=== PATIENT | female | born 1950 | race Caucasian/White ===

== ENCOUNTER 2017-04-26 11:36 | Emergency (ER) | payer MEDICARE ==
[2017-04-26 13:14] LABS: Hematocrit 36 % (35-47); Hemoglobin 11.6 g/dl (12.0-16.0); Mean Corpuscular HGB Conc 33 g/dl (31-36); Mean Corpuscular Hemoglobin 30 pg (27-31); Mean Corpuscular Volume 92 fL (80-97); Mean Platelet Volume 7 um3 (7.4-10.4); Red Cell Distribution Width 15 % (10.5-15); White Blood Count 7.7 10^3/ul (3.5-10.8)
[2017-04-26 13:17] LABS: Albumin 3.5 g/dL (3.2-5.2); BUN/Creatinine Ratio 7.4 (8-20); C Reactive Protein 6.52 mg/L (< 5.00); Calcium 9.1 mg/dL (8.6-10.3); EGFR African American 45.2 (>60); EGFR Non-African American 35.1 (>60); Potassium 4.6 mmol/L (3.5-5.0); Total Bilirubin 0.4 mg/dL (0.2-1.0); Total Protein 6.5 g/dL (6.4-8.9)
[2017-04-26 13:19] LABS: Troponin I 0.01 ng/mL (<0.04)
[2017-04-26 13:58] VITALS: BP 113/52
--- NOTE | 2017-04-26 16:48 | ED ---
Samuya Maher Emily, scribed for Shaq Campos MD on 04/26/17 at 1224 . Complex/Multi-Sys Presentation - HPI Summary HPI Summary: This patient is a 66 year old F BIBA to [facility] with a chief complaint of intermittent throat pain since 3 days ago. The pain radiates to her back (worse this morning) and shoulder (since yesterday). The CC is described as spasms, sore, and burning. The patient rates the pain 6/10 in severity. Symptoms aggravated by nothing. Symptoms alleviated by nothing. Patient reports discolored right foot, burning sore sensation in right foot, dizziness, diarrhea , irregular palpitations, and slow heart rate. She reports a feral cat bite at her right foot 3 months ago for which she was started on abx. She also reports a recent C diff diagnosis for which she was started on another abx. PMHx incudes cardiac arrhythmia, liver failure (2011), and DM. - History Of Current Complaint Chief Complaint: EDChestPainROMI Time Seen by Provider: 04/26/17 11:59 Hx Obtained From: Patient Onset/Duration: Sudden Onset, Lasting Days, Still Present Timing: Intermittent, Lasting: - 3 days. Severity Currently: Moderate Severity Initially: Moderate Location: Radiates To: - Back (worse this morning) and shoulder (since yesterday ). Aggravating Factor(s): Nothing. Alleviating Factor(s): Nothing. Associated Signs And Symptoms: Positive: Other - Discolored right foot, burning sore sensation in right foot, dizziness, diarrhea, irregular palpitations, and slow heart rate. - Allergies/Home Medications Allergies/Adverse Reactions: Allergies Allergy/AdvReac Type Severity Reaction Status Date / Time Iodinated Diagnostic Agents Allergy TRIGEMINY Verified 02/25/17 13:52 PMH/Surg Hx/FS Hx/Imm Hx Endocrine/Hematology History: Reports: Hx Diabetes Denies: Hx Thyroid Disease Cardiovascular History: Reports: Hx Hypertension - ON MEDS Denies: Hx Pacemaker/ICD Respiratory History: Denies: Hx Asthma, Hx Chronic Obstructive Pulmonary Disease (COPD) GI History: Denies: Hx Ulcer History: Reports: Hx Renal Disease - PREVIOUS KIDNEY FAILURE BUT OK NOW Sensory History: Denies: Hx Hearing Aid Psychiatric History: Denies: Hx Panic Disorder - Cancer History Hx Chemotherapy: No Hx Radiation Therapy: No - Surgical History Surgery Procedure, Year, and Place: Liver surger r/t begnign tumors, [place] approx 1994; may have also had gallbladder removed at that time. LUMP IN CHEST REMOVED 2001 Infectious Disease History: No Infectious Disease History: Denies: Hx Hepatitis, Hx Human Immunodeficiency Virus (HIV), Hx Shingles, History Other Infectious Disease, Traveled Outside the [place] in Last 30 Days - Family History Known Family History: Positive: Other - NONCONTRIBUTORY - Social History Alcohol Use: None Substance Use Type: Reports: Prescribed Substance Use Comment - Amount & Last Used: methadone Smoking Status (MU): Never Smoked Tobacco Review of Systems Positive: Palpitations - Irregular., Other - Slow heart rate. Positive: Diarrhea Positive: Other - Throat pain which radiates to her back (worse this morning) and shoulder (since yesterday). Burning sore sensation in right foor. Positive: Other - Discolored right foot. Neurological: Other - Dizziness. All Other Systems Reviewed And Are Negative: Yes Physical Exam Triage Information Reviewed: Yes Vital Signs On Initial Exam: Initial Vitals Temp Pulse Resp BP Pulse Ox 98.4 F 62 16 122/54 98 04/26/17 11:43 04/26/17 11:43 04/26/17 11:43 04/26/17 11:43 04/26/17 11:43 Vital Signs Reviewed: Yes Appearance: Positive: Well-Appearing, No Pain Distress Skin: Positive: Warm, Skin Color Reflects Adequate Perfusion, Dry Head/Face: Positive: Normal Head/Face Inspection Eyes: Positive: Normal ENT: Positive: Normal ENT inspection Neck: Positive: Supple, Nontender Respiratory/Lung Sounds: Positive: Clear to Auscultation, Breath Sounds Present Cardiovascular: Positive: RRR Abdomen Description: Positive: Nontender, Soft Bowel Sounds: Positive: Present Musculoskeletal: Positive: Normal Neurological: Positive: Normal, Sensory/Motor Intact, Alert, Oriented to Person Place, Time, CN Intact II-III Psychiatric: Positive: Affect/Mood Appropriate - [place] Coma Scale Coma Scale Total: 15 Diagnostics - Vital Signs Vital Signs Temp Pulse Resp BP Pulse Ox 04/26/17 11:55 56 96 04/26/17 11:53 125/62 04/26/17 11:43 98.4 F 62 16 122/54 98 - Laboratory Lab Results: Lab Results 04/26/17 04/26/17 Range/Units 12:50 12:50 WBC 7.7 (3.5-10.8) 10^3/ul RBC 3.90 L (4.0-5.4) 10^6/ul Hgb 11.6 L (12.0-16.0) g/dl Hct 36 (35-47) % MCV 92 (80-97) fL MCH 30 (27-31) pg MCHC 33 (31-36) g/dl RDW 15 (10.5-15) % Plt Count 230 (150-450) 10^3/ul MPV 7 L (7.4-10.4) um3 Neut % (Auto) 76.7 (38-83) % Lymph % (Auto) 15.9 L (25-47) % [place] % (Auto) 6.2 (1-9) % Eos % (Auto) 0.8 (0-6) % Baso % (Auto) 0.4 (0-2) % Absolute Neuts (auto) 5.9 (1.5-7.7) 10^3/ul Absolute Lymphs (auto) 1.2 (1.0-4.8) 10^3/ul Absolute Monos (auto) 0.5 (0-0.8) 10^3/ul Absolute Eos (auto) 0.1 (0-0.6) 10^3/ul Absolute Basos (auto) 0 (0-0.2) 10^3/ul Absolute Nucleated RBC 0 10^3/ul Nucleated RBC % 0 Sodium 136 (133-145) mmol/L Potassium 4.6 (3.5-5.0) mmol/L Chloride 101 (101-111) mmol/L Carbon Dioxide 31 (22-32) mmol/L Anion Gap 4 (2-11) mmol/L BUN 11 (6-24) mg/dL Creatinine 1.49 H (0.51-0.95) mg/dL Est GFR ( Amer) 45.2 (>60) Est GFR (Non-Af Amer) 35.1 (>60) BUN/Creatinine Ratio 7.4 L (8-20) Glucose 147 H (70-100) mg/dL Calcium 9.1 (8.6-10.3) mg/dL Total Bilirubin 0.40 (0.2-1.0) mg/dL AST 21 (13-39) U/L ALT 14 (7-52) U/L Alkaline Phosphatase 61 (34-104) U/L Troponin I 0.01 (<0.04) ng/mL C-Reactive Protein 6.52 H (< 5.00) mg/L Total Protein 6.5 (6.4-8.9) g/dL Albumin 3.5 (3.2-5.2) g/dL Globulin 3.0 (2-4) g/dL Albumin/Globulin Ratio 1.2 (1-3) Result Diagrams: 04/26/17 12:50 04/26/17 12:50 Lab Statement: Any lab studies that have been ordered have been reviewed, and results considered in the medical decision making process. - EKG 1159 Cardiac Rate: Bradycardia - 58 BPM. EKG Rhythm: Sinus Bradycardia ST Segment: Non-Specific - Anterior leads. Complex Multi-Symp Course/Dx Course Of Treatment: Ms. Talavera presented with some vague complaints that have started in the last day and have been gradually worsening. Her W/U was unremarkable and my sense is that this is a flair up of her fibromyalgia. - Diagnoses Provider Diagnoses: Fibromyalgia Discharge - Discharge Plan Condition: Stable Disposition: HOME Patient Education Materials: Fibromyalgia (ED) Referrals: Anson Pack MD [Primary Care Provider] - 3 Days Gino Pizarro MD [Medical Doctor] - 3 Days The documentation as recorded by the Saumya beaver Emily accurately reflects the service I personally performed and the decisions made by me, Shaq Campos MD.
== END 2017-04-26 14:10 | disposition home or self-care (01) ==
LOC: ED 11:36
DX: M79.7 Fibromyalgia (principal); R19.7 Diarrhea, unspecified; R00.2 Palpitations; J02.9 Acute pharyngitis, unspecified
CPT/HCPCS: 36415; 80053; 84484; 85025; 86140; 93005; 99282

== ENCOUNTER → 2017-04-30 13:10 | Emergency (ER) | payer MEDICARE ==
[~2017-04-30 13:10] MED LIST: Methadone TAB* 10 MG PO ONE; NS 0.9% 1000 ML* 1,000 ML IV ONE
[2017-04-30 15:46] LABS: Hematocrit 38 % (35-47); Hemoglobin 12.7 g/dl (12.0-16.0); Mean Corpuscular HGB Conc 34 g/dl (31-36); Mean Corpuscular Hemoglobin 31 pg (27-31); Mean Corpuscular Volume 91 fL (80-97); Mean Platelet Volume 7 um3 (7.4-10.4); Red Blood Count 4.14 10^6/ul (4.0-5.4); Red Cell Distribution Width 15 % (10.5-15); White Blood Count 8.7 10^3/ul (3.5-10.8)
[2017-04-30 15:59] LABS: Albumin 3.9 g/dL (3.2-5.2); BUN/Creatinine Ratio 7.6 (8-20); C Reactive Protein 1.75 mg/L (< 5.00); Calcium 9.7 mg/dL (8.6-10.3); EGFR African American 46.6 (>60); EGFR Non-African American 36.2 (>60); Globulin 3.2 g/dL (2-4); Magnesium 1.9 mg/dL (1.9-2.7); Total Bilirubin 0.5 mg/dL (0.2-1.0); Total Protein 7.1 g/dL (6.4-8.9)
[2017-04-30 16:20] LABS: TSH (Thyroid Stimulating Horm) 0.89 mcIU/mL (0.34-5.60)
--- NOTE | 2017-04-30 16:39 | RAD ---
INDICATION: Left upper extremity pain and erythema. COMPARISON: There are no prior studies available for comparison. TECHNIQUE: Multiple real-time, color flow and Doppler tracings of the left upper extremity were obtained. FINDINGS: The axillary, brachial, and basilic veins all demonstrate normal compressibility, augmentation with compression and phasic response with respiration. The radial and ulnar veins demonstrate normal compressibility. The cephalic vein is occluded at the level of the anterior cubital fossa extending to the level of the midhumerus. The subclavian and internal jugular veins also demonstrate normal color flow imaging and phasic response with respiration. IMPRESSION: SUPERFICIAL VENOUS THROMBOSIS WITHIN THE CEPHALIC VEIN.
[2017-04-30 16:41] LABS: Urine Bacteria 1+ (Absent); Urine Bilirubin Negative (Negative); Urine Glucose Negative (Negative); Urine Nitrite Negative (Negative)
--- NOTE | 2017-04-30 16:48 | RAD ---
INDICATION: Midsternal chest pain radiating to the back COMPARISON: Similar chest x-ray June 25, 2015 TECHNIQUE: Single AP portable view of the chest was obtained. FINDINGS: Image quality is compromised due to the relative inferiority of a portable chest x-ray. The heart and mediastinum exhibit normal size and contour. The lungs are grossly clear. There is no evidence of a large pleural effusion. Visualized bones are normal for the patient's age. IMPRESSION: No radiographic evidence for acute cardiopulmonary abnormality on this portable chest x-ray.
[2017-04-30 21:58] VITALS: BP 113/52
--- NOTE | 2017-04-30 23:15 | ED ---
Paty Maher Thomas, scribed for Kat Roblero MD on 04/30/17 at 1531 . Complex/Multi-Sys Presentation - HPI Summary HPI Summary: The pt is a 66 y/o F with a Hx of Fibromyalgia presenting to the ED c/o pain over her entire body. She notes a burning sensation on her right foot, across her lower back, and in her neck. She also describes a pressure sensation in her head and my ears keep popping. She also reports epigastric abd pain. The pt rates the pain 10/10. The pain is aggravated and alleviated by nothing. The patient has treated the pain with nothing [employer]. However, she did take methadone 50mg PO this morning. Pt additionally c/o pain in her left bicep on the area of the IV insertion left week. Pt denies diarrhea, redness, and swelling in the ED. Per EMR, her complaints on her visit on 04/26/17 were intermittent throat pain (that radiated to her back and shoulder and was described as spasms, soreness, and burning), discolored right foot, a burning sensation on her right foot, dizziness, diarrhea, irregular palpitations, and bradycardia. She reports a bite by a feral cat three months ago, after which she was prescribed Levaquin and Flagyl. She developed C. diff after these antibiotics and for this she was prescribed Vancomycin. Her PCP is Dr. Pack, who she saw this complaint after her ED visit on 04/26/17. He diagnosed her with gastritis and prescribed her Sucralfate, which she started two days ago. She was started on Methadone by Dr. Pack about ten years ago. She takes Atenolol, Soma, Nexium, Lisinopril, Crestor, Verapamil, and Jenuvia. PMHx: cardiac arrhythmia, liver failure, DM, HTN. PSHx: liver surgery, cholecystectomy. SHx: no smoking, no alcohol use, prescribed methadone. FHx: [place], CVA, DM. Patients medications reviewed this visit. I also reviewed I-STOP and her last prescription for methadone was . - History Of Current Complaint Chief Complaint: EDGeneral Time Seen by Provider: 04/30/17 14:31 Hx Obtained From: Patient Onset/Duration: Lasting Weeks - per EMR, complaint began 04/23/17, Still Present Timing: Constant Severity Currently: Severe Severity Initially: Severe Location: Pain At: - "entire body" Character: Pressure - in head Aggravating Factor(s): None Alleviating Factor(s): None Associated Signs And Symptoms: Positive: Back Pain - pain radiates to her back, Other - POS: burning sensation over "entire body", pressure sensation in head, pain in left bicep on area of IV insertionNEG: redness, swelling. Negative: Fever - Allergies/Home Medications Allergies/Adverse Reactions: Allergies Allergy/AdvReac Type Severity Reaction Status Date / Time Iodinated Diagnostic Agents Allergy TRIGEMINY Verified 02/25/17 13:52 PMH/Surg Hx/FS Hx/Imm Hx Previously Healthy: No Endocrine/Hematology History: Reports: Hx Diabetes Denies: Hx Thyroid Disease Cardiovascular History: Reports: Hx Hypertension - ON MEDS Denies: Hx Pacemaker/ICD Respiratory History: Denies: Hx Asthma, Hx Chronic Obstructive Pulmonary Disease (COPD) GI History: Denies: Hx Ulcer History: Reports: Hx Renal Disease - PREVIOUS KIDNEY FAILURE BUT OK NOW Sensory History: Denies: Hx Hearing Aid Psychiatric History: Denies: Hx Panic Disorder - Cancer History Hx Chemotherapy: No Hx Radiation Therapy: No - Surgical History Surgery Procedure, Year, and Place: Liver surger r/t [facility] tumors, [place] approx 1994; may have also had gallbladder removed at that time. LUMP IN CHEST REMOVED 2001 Infectious Disease History: No Infectious Disease History: Denies: Hx Hepatitis, Hx Human Immunodeficiency Virus (HIV), Hx Shingles, History Other Infectious Disease, Traveled Outside the [place] in Last 30 Days - Family History Known Family History: Positive: Diabetes, Other - POS: [place], CVA - Social History Alcohol Use: None Substance Use Type: Reports: None Substance Use Comment - Amount & Last Used: methadone Smoking Status (MU): Never Smoked Tobacco Review of Systems Positive: Other - POS: pain over "entire body" (described as burning). Negative : Fever Positive: Chest Pain Positive: Abdominal Pain - epigastric. Negative: Diarrhea Positive: Other - POS: pain in left bicep at area of incision site; NEG: swelling Negative: Other - NEG: redness Neurological: Other - POS: pressure sensation in head All Other Systems Reviewed And Are Negative: Yes Physical Exam Triage Information Reviewed: Yes Vital Signs On Initial Exam: Initial Vitals Temp Pulse Resp BP Pulse Ox 98.3 F 59 18 131/81 99 04/30/17 13:12 04/30/17 13:12 04/30/17 13:12 04/30/17 13:12 04/30/17 13:12 Vital Signs Reviewed: Yes Appearance: Positive: Well-Appearing, Well-Nourished, Pain Distress Skin: Positive: Warm, Skin Color Reflects Adequate Perfusion Head/Face: Positive: Normal Head/Face Inspection Eyes: Positive: Conjunctiva Clear ENT: Positive: Normal ENT inspection Neck: Positive: Supple Respiratory/Lung Sounds: Positive: Clear to Auscultation, Breath Sounds Present , Other - No respiratory distress Cardiovascular: Positive: RRR, Pulses are Symmetrical in both Upper and Lower Extremities, Other - Brisk cap refill. Negative: Murmur Abdomen Description: Positive: Nontender, Soft Bowel Sounds: Positive: Present Musculoskeletal: Positive: Strength/ROM Intact Neurological: Positive: Sensory/Motor Intact, Alert, Oriented to Person Place, Time, Facial Symmetry, Speech Normal Psychiatric: Positive: Normal - [place] Coma Scale Coma Scale Total: 15 Diagnostics - Vital Signs Vital Signs Temp Pulse Resp BP Pulse Ox 04/30/17 14:41 97.4 F 57 18 129/64 100 04/30/17 13:12 98.3 F 59 18 131/81 99 - Laboratory Lab Results: Lab Results 04/30/17 04/30/17 04/30/17 Range/Units 15:36 15:36 15:36 WBC 8.7 (3.5-10.8) 10^3/ul RBC 4.14 (4.0-5.4) 10^6/ul Hgb 12.7 (12.0-16.0) g/dl Hct 38 (35-47) % MCV 91 (80-97) fL MCH 31 (27-31) pg MCHC 34 (31-36) g/dl RDW 15 (10.5-15) % Plt Count 208 (150-450) 10^3/ul MPV 7 L (7.4-10.4) um3 Neut % (Auto) 78.1 (38-83) % Lymph % (Auto) 17.3 L (25-47) % [place] % (Auto) 3.5 (1-9) % Eos % (Auto) 0.3 (0-6) % Baso % (Auto) 0.8 (0-2) % Absolute Neuts (auto) 6.8 (1.5-7.7) 10^3/ul Absolute Lymphs (auto) 1.5 (1.0-4.8) 10^3/ul Absolute Monos (auto) 0.3 (0-0.8) 10^3/ul Absolute Eos (auto) 0 (0-0.6) 10^3/ul Absolute Basos (auto) 0.1 (0-0.2) 10^3/ul Absolute Nucleated RBC 0 10^3/ul Nucleated RBC % 0 INR (Anticoag Therapy) 0.97 (0.89-1.11) Sodium 136 (133-145) mmol/L Potassium 4.0 (3.5-5.0) mmol/L Chloride 98 L (101-111) mmol/L Carbon Dioxide 32 (22-32) mmol/L Anion Gap 6 (2-11) mmol/L BUN 11 (6-24) mg/dL Creatinine 1.45 H (0.51-0.95) mg/dL Est GFR ( Amer) 46.6 (>60) Est GFR (Non-Af Amer) 36.2 (>60) BUN/Creatinine Ratio 7.6 L (8-20) Glucose 120 H (70-100) mg/dL Lactic Acid (0.5-2.0) mmol/L Calcium 9.7 (8.6-10.3) mg/dL Magnesium 1.9 (1.9-2.7) mg/dL Total Bilirubin 0.50 (0.2-1.0) mg/dL AST 26 (13-39) U/L ALT 18 (7-52) U/L Alkaline Phosphatase 63 (34-104) U/L Total Creatine Kinase 46 (10-223) U/L Troponin I 0.00 (<0.04) ng/mL C-Reactive Protein 1.75 (< 5.00) mg/L Total Protein 7.1 (6.4-8.9) g/dL Albumin 3.9 (3.2-5.2) g/dL Globulin 3.2 (2-4) g/dL Albumin/Globulin Ratio 1.2 (1-3) TSH 0.89 (0.34-5.60) mcIU/mL Urine Color Urine Appearance Urine pH (5-9) Ur Specific [place] (1.010-1.030) Urine Protein (Negative) Urine Ketones (Negative) Urine Blood (Negative) Urine Nitrate (Negative) Urine Bilirubin (Negative) Urine Urobilinogen (Negative) Ur Leukocyte Esterase (Negative) Urine WBC (Auto) (Absent) Urine RBC (Auto) (Absent) Ur Squamous Epith Cells (Absent) Urine Bacteria (Absent) Hyaline Casts (Absent) Urine Glucose (Negative) 04/30/17 04/30/17 Range/Units 15:36 16:25 WBC (3.5-10.8) 10^3/ul RBC (4.0-5.4) 10^6/ul Hgb (12.0-16.0) g/dl Hct (35-47) % MCV (80-97) fL MCH (27-31) pg MCHC (31-36) g/dl RDW (10.5-15) % Plt Count (150-450) 10^3/ul MPV (7.4-10.4) um3 Neut % (Auto) (38-83) % Lymph % (Auto) (25-47) % [place] % (Auto) (1-9) % Eos % (Auto) (0-6) % Baso % (Auto) (0-2) % Absolute Neuts (auto) (1.5-7.7) 10^3/ul Absolute Lymphs (auto) (1.0-4.8) 10^3/ul Absolute Monos (auto) (0-0.8) 10^3/ul Absolute Eos (auto) (0-0.6) 10^3/ul Absolute Basos (auto) (0-0.2) 10^3/ul Absolute Nucleated RBC 10^3/ul Nucleated RBC % INR (Anticoag Therapy) (0.89-1.11) Sodium (133-145) mmol/L Potassium (3.5-5.0) mmol/L Chloride (101-111) mmol/L Carbon Dioxide (22-32) mmol/L Anion Gap (2-11) mmol/L BUN (6-24) mg/dL Creatinine (0.51-0.95) mg/dL Est GFR ( Amer) (>60) Est GFR (Non-Af Amer) (>60) BUN/Creatinine Ratio (8-20) Glucose (70-100) mg/dL Lactic Acid 1.0 (0.5-2.0) mmol/L Calcium (8.6-10.3) mg/dL Magnesium (1.9-2.7) mg/dL Total Bilirubin (0.2-1.0) mg/dL AST (13-39) U/L ALT (7-52) U/L Alkaline Phosphatase (34-104) U/L Total Creatine Kinase (10-223) U/L Troponin I (<0.04) ng/mL C-Reactive Protein (< 5.00) mg/L Total Protein (6.4-8.9) g/dL Albumin (3.2-5.2) g/dL Globulin (2-4) g/dL Albumin/Globulin Ratio (1-3) TSH (0.34-5.60) mcIU/mL Urine Color Yellow Urine Appearance Clear Urine pH 6.0 (5-9) Ur Specific [place] 1.008 L (1.010-1.030) Urine Protein Negative (Negative) Urine Ketones Negative (Negative) Urine Blood Negative (Negative) Urine Nitrate Negative (Negative) Urine Bilirubin Negative (Negative) Urine Urobilinogen Negative (Negative) Ur Leukocyte Esterase Trace H (Negative) Urine WBC (Auto) Trace(0-5/hpf) (Absent) Urine RBC (Auto) Absent (Absent) Ur Squamous Epith Cells Present H (Absent) Urine Bacteria 1+ H (Absent) Hyaline Casts Present H (Absent) Urine Glucose Negative (Negative) Result Diagrams: 04/30/17 15:36 04/30/17 15:36 Lab Statement: Any lab studies that have been ordered have been reviewed, and results considered in the medical decision making process. - Radiology CXR Xray Interpretation: No Acute Changes - CXR shows No radiographic evidence for acute cardiopulmonary abnormality on this portable chest x-ray. ED Physician has reviewed this report and agrees. Radiology Interpretation Completed By: Radiologist - EKG 17:01 Cardiac Rate: NL - SB at 54 BPM, Nml AV, Prolonged IV conduction time, Prolonged QTc (523), Nml [place]. Nonspecific. EKG Comparison: No Significant Change - comapred to 04/26/17, there is no significant change. - Additional Comments Diagnostic Additional Comments: Venous Doppler US of RUE. Interpreted by radiologist. Impression: SUPERFICIAL VENOUS THROMBOSIS WITHIN THE CEPHALIC VEIN. ED Physician has reviewed this report and agrees. Re-Evaluation - Re-Evaluation First Eval Re-Evaluation Time: 18:41 Change: Worse Comment: She is complaining of increasing pain. She still has epigastic pain. Second Eval Re-Evaluation Time: 20:44 Change: Unchanged Comment: I discussed with the patient warm compresses, adequate sleep, and pain management going forward with her primary care provider. Complex Multi-Symp Course/Dx Assessment/Plan: The patient presents with pain over her entire body described as burning that began 7 days ago. She has a Hx of Fibromyalgia and is on methadone. Pt complains of epigastric abd pain as well as pain in her left bicep on the area of the IV insertion left week. In the ED course the patient was given IV fluids and Methadone. Bloodwork shows Chloride 98, Creatine 1.45, Glucose 120. UA shows Ur specific gravity 1.008, trace leukocyte esterase, 1+ bacteria, and present hyaline casts. CXR shows No radiographic evidence for acute cardiopulmonary abnormality on this portable chest x-ray. Venous Doppler US of RUE shows SUPERFICIAL VENOUS THROMBOSIS WITHIN THE CEPHALIC VEIN. ED Physician has reviewed this report and agrees. EKG at 17:01 reveals SB at 54 BPM , Nml AV, Prolonged IV conduction time, Prolonged QTc (523), Nml [place]. Nonspecific. Compared to 04/26/17, there is no significant change. She is diagnosed with paresthesia, epigastric pain, fibromyalgia, and acute on chronic pain. She will follow up with neurology and her PCP. She is agreeable to this plan. - Diagnoses Provider Diagnoses: Paresthesia, Epigastric pain, Fibromyalgia, Acute on chronic pain Discharge - Discharge Plan Condition: Stable Disposition: HOME Patient Education Materials: Fibromyalgia (ED), Epigastric Pain (ED), Paresthesia (ED) Referrals: David Mcdonnell MD [Medical Doctor] - 3 Days Anson Pcak MD [Primary Care Provider] - Additional Instructions: You have a superficial thrombophlebitis in your left arm. You should treat this with warm compresses four times a day for 7 days. Continue your methadone as directed. Consult with Dr. Pack whether you can increase the dose that you take. Continue your other medications as directed. Return to the emergency room for any new or worsening symptoms. The documentation as recorded by the Paty beaver Thomas accurately reflects the service I personally performed and the decisions made by me, Kat Roblero MD.
== END | disposition home or self-care (01) ==
LOC: ED 13:10
DX: M79.7 Fibromyalgia (principal); R10.13 Epigastric pain; R20.9 Unspecified disturbances of skin sensation; G89.29 Other chronic pain; I82.612 Acute embolism and thrombosis of superficial veins of left upper extremity
CPT/HCPCS: 36415; 71010; 80053; 81003; 81015; 82550; 83605; 83735; 84443; 84484; 85025; 85610; 86140; 87086; 93005; 96360; 99282; A9270-GY

== ENCOUNTER 2017-08-04 08:10 | Day surgery (SDC) | payer MEDICARE ==
[~2017-08-04 08:10] MED LIST changes: +Acetaminophen TAB* 325 MG PO PRN; +Buffered Lidocaine 0.9% SYRIN* 5 ML/SYR SYRINGE INTRADERM ONE; -Methadone TAB* 10 MG PO ONE; +Midazolam* 1 MG/ML 2 ML VIAL (2 MG) ONE; -NS 0.9% 1000 ML* 1,000 ML IV ONE
[2017-08-04] MEDS ORDERED: Midazolam* 1 MG/ML 2 ML VIAL (2 MG) ONE ×2 (10:12→10:15)
--- NOTE | 2017-08-04 10:47 | OP ---
DATE OF OPERATION: 08/04/2017. DATE OF : 1950. SURGEON: Fercho Darden M.D. ANESTHESIA: Local MAC. PREOPERATIVE DIAGNOSIS: Cataract right eye. POSTOPERATIVE DIAGNOSIS: Cataract right eye. COMPLICATIONS: None. OPERATIVE PROCEDURE: Extracapsular cataract extraction with intraocular lens implant right eye. PROCEDURE: The patient was brought to the operating room after being given 1/2% Alcaine with epineph rine drops in the preoperative area. The eye was prepped and draped in the usual sterile fashion. S terile drape and eyelid speculum were placed. Again, topical 1/2% Alcaine with epinephrine was given . A paracentesis incision was made at the 9 o'clock position with the No.75 blade. Clear cornea inc ision 2.2 x 2.2-mm was created at the 12 o'clock position starting at the anterior limbus using the 2 .2-mm keratome. The anterior chamber was irrigated with 0.4 mL of 1% non-preservative intracameral l idocaine and filled with DisCoVisc. A capsulorrhexis was completed using the cystotome and the Utrat a forceps. Hydrodissection was performed with balanced salt solution. The lens nucleus was removed w ith the Phacoemulsification handpiece without incident. Cortex was removed with the irrigation-aspir ation handpiece. The capsular bag was re-inflated using DisCoVisc and an [id number] implant was inser erasmo with the shooter. The irrigation-aspiration handpiece was used to remove all residual DisCoVisc. The eye was refilled with balanced salt solution and the wound checked and found to be watertight. Topical Maxitrol drops were given. [id number]/[facility] #: [id number]
[2017-08-04 12:46] VITALS: BP 111/53
== END 2017-08-04 12:40 | disposition home or self-care (01) ==
LOC: OREAST 08:10
PROVIDERS: ATTEND Specialist
DX: H25.811 Combined forms of age-related cataract, right eye (principal); H40.023 Open angle with borderline findings, high risk, bilateral; I47.1 Supraventricular tachycardia; E11.22 Type 2 diabetes mellitus with diabetic chronic kidney disease; I12.9 Hypertensive chronic kidney disease with stage 1 through stage 4 chronic kidney disease, or unspecified chronic kidney disease; N18.3 Chronic kidney disease, stage 3 (moderate); M79.7 Fibromyalgia
CPT/HCPCS: J2250; V2632

== ENCOUNTER 2017-08-11 07:31 | Day surgery (SDC) | payer MEDICARE ==
[~2017-08-11 07:31] MED LIST changes: -Midazolam* 1 MG/ML 2 ML VIAL (2 MG) ONE
[2017-08-11] MEDS ORDERED: Midazolam* 1 MG/ML 2 ML VIAL (2 MG) ONE ×2 (09:39→10:06)
[2017-08-11 10:32] VITALS: BP 104/48
[2017-08-11] MEDS ORDERED: Lidocaine 2% EPI 1:200000 MPF* 20 ML VIAL ONE (11:02)
[2017-08-11] MEDS ORDERED: Povidone Iodine 5% OPTH* 30 ML BTL ONE (11:02)
[2017-08-11] MEDS ORDERED: Lidocaine 1% MPF* 2 ML VIAL ONE (11:02)
[2017-08-11] MEDS ORDERED: Proparacaine 0.5% OPHTH.SOL* 15 ML BTL ONE (11:02)
[2017-08-11] MEDS ORDERED: Cyclopentolate 1% OPTH.SOL* 2 ML BTL ONE (11:02)
[2017-08-11] MEDS ORDERED: Ketorolac 0.5% OPHTH (NF) 0.5 % 5 ML BTL ONE (11:02)
[2017-08-11] MEDS ORDERED: acetaZOLAMIDE TAB* 250 MG ONE (11:02)
[2017-08-11] MEDS ORDERED: Phenylephrine 2.5% OPTH.SOL* 2 ML BTL ONE (11:02)
[2017-08-11] MEDS ORDERED: Neomycin/Polymy/Dex OPTH.SUSP* MAXITROL 0.1% 5 ML ONE (11:02)
--- NOTE | 2017-08-12 04:11 | OP ---
DATE OF OPERATION: 08/11/17 [facility] DATE OF : 52 SURGEON: Fercho Darden M.D. PREOPERATIVE DIAGNOSIS: Cataract, left eye. POSTOPERATIVE DIAGNOSIS: Cataract, left eye. OPERATIVE PROCEDURE: Extracapsular cataract extraction with intraocular lens implant left eye. DESCRIPTION OF PROCEDURE: The patient was brought to the operating room after being given 1/2% Alcaine with epinephrine drops in the preoperative area. The eye was prepped and draped in the usual sterile fashion. Sterile drape and eyelid speculum were placed. Again, topical 1/2% Alcaine with epinephrine was given. A paracentesis incision was made at the 3 o'clock position with the No.75 blade. Clear cornea incision 2.2 x 2.2-mm was created at the 6 o'clock position starting at the anterior limbus using the 2.2-mm keratome. The anterior chamber was irrigated with 0.4 mL of 1% non-preservative intracameral lidocaine and filled with DisCoVisc. A capsulorrhexis was completed using the cystotome and the Utrata forceps. Hydrodissection was performed with balanced salt solution. The lens nucleus was removed with the Phacoemulsification handpiece without incident. Cortex was removed with the irrigation-aspiration handpiece. The capsular bag was re-inflated using DisCoVisc and an [id number] implant was inserted with the shooter. The irrigation-aspiration handpiece was used to remove all residual DisCoVisc. The eye was refilled with balanced salt solution and the wound checked and found to be watertight. Topical Maxitrol drops were given. [id number]/[facility] #: [id number] [facility]
== END 2017-08-11 10:42 | disposition home or self-care (01) ==
LOC: OREAST 07:31
PROVIDERS: ATTEND Specialist
DX: H25.812 Combined forms of age-related cataract, left eye (principal); H40.023 Open angle with borderline findings, high risk, bilateral; K21.9 Gastro-esophageal reflux disease without esophagitis; I10 Essential (primary) hypertension; E78.00 Pure hypercholesterolemia, unspecified; E11.22 Type 2 diabetes mellitus with diabetic chronic kidney disease; M79.7 Fibromyalgia; Z96.1 Presence of intraocular lens
CPT/HCPCS: A9270-GY; J2250; V2632

== ENCOUNTER 2018-11-14 11:46 | Emergency (ER) | payer MEDICARE ==
--- NOTE | 2018-11-14 12:10 | UC ---
Throat Pain/Nasal Jonathan HPI - HPI Summary HPI Summary: 68 yo female presents with right ear pain and bleeding s/p injury yesterday. She tells me that she was moving a lot of boxes and furniture to get ready for her grand-daughter's birthday democrat. At one point she ran into someone else carrying something and hit her right ear. Had immediate pain and decreased hearing. Later had some mild bloody drainage from the ear. She put a q-tip in her ear and noticed more blood. Overnight she put gauze in her ear and noticed it was bloody this morning - prompting her visit to . She was feeling well prior to this and denies cold symptoms, headache, dizziness, sinus symptoms. - History of Current Complaint Chief Complaint: UCEar Stated Complaint: EAR BLEEDING Time Seen by Provider: 11/14/18 12:10 Hx Obtained From: Patient Onset/Duration: Sudden Onset Severity: Mild Pain Intensity: 3 Pain Scale Used: 0-10 Numeric - Allergies/Home Medications Allergies/Adverse Reactions: Allergies Allergy/AdvReac Type Severity Reaction Status Date / Time Iodinated Contrast- Oral and Allergy See Comment Verified 11/14/18 12:05 IV Dye levofloxacin [From Levaquin] Allergy Muscle Ache Verified 11/14/18 12:05 metronidazole [From Flagyl] Allergy Muscle Ache Verified 11/14/18 12:05 NSAIDS (Non-Steroidal Allergy See Comment Verified 11/14/18 12:05 Anti-Inflamma vancomycin Allergy Muscle Ache Verified 11/14/18 12:05 PMH/Surg Hx/FS Hx/Imm Hx - Additional Past Medical History Additional PMH: Chronic pain Endocrine History: Dyslipidemia Cardiovascular History: Hypertension GI/ History: Gastroesophageal Reflux - Surgical History Surgical History: Yes Surgery Procedure, Year, and Place: Liver surger r/t begnign tumors, [place] approx 1994; may have also had gallbladder removed at that time. 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 WDWN. No pain distress. SKIN: No rashes, sores, lesions, or open wounds. HEENT: Head: AT/NC Eyes: EOM intact. Conjunctiva clear without inflammation or discharge. Ears: Hearing grossly normal. RIGHT TM with very small perforation at the 1 o'clock position. Ear canal with abrasion and scant bleeding. No discharge. Nose: Nasal mucosa pink and moist. NTTP maxillary and frontal sinus. Throat: Posterior oropharynx without exudates, erythema, or tonsillar enlargement. Uvula midline. NECK: Supple. Nontender. No lymphadenopathy. CHEST: CTAB. No r/r/w. No accessory muscle use. Breathing comfortably and in no distress. CV: RRR. Without m/r/g. Pulses intact. NEURO: Alert. PSYCH: Age appropriate behavior. Triage Information Reviewed: Yes Vital Signs: Initial Vital Signs Temp 98.6 F 11/14/18 11:54 Pulse 55 11/14/18 11:54 Resp 18 11/14/18 11:54 BP 115/65 11/14/18 11:54 Pulse Ox 99 11/14/18 11:54 Vital Signs Reviewed: Yes Throat Pain/Nasal Course/Dx - Course Course Of Treatment: Traumatic rupture of right TM. Will cover her with antibiotic ear drops and advise expectant management. - Differential Dx/Diagnosis Provider Diagnosis: Barotrauma, Perforated tympanic membrane Discharge - Sign-Out/Discharge Documenting (check all that apply): Patient Departure All imaging exams completed and their final reports reviewed: No Studies - Discharge Plan Condition: Stable Disposition: HOME Prescriptions: Ofloxacin 0.3% (Ear Drop)* [Floxin 0.3% OTIC.KACI (Ear Drop)] 5 drop RIGHT EAR BID #1 btl Patient Education Materials: Ruptured Eardrum (ED) Referrals: Anson Pack MD [Primary Care Provider] - Additional Instructions: If you develop a fever, shortness of breath, chest pain, new or worsening symptoms - please call your PCP or go to the ED. - Billing Disposition and Condition Condition: STABLE Disposition: Home
[2018-11-14 12:41] VITALS: BP 115/65
== END 2018-11-14 12:20 | disposition home or self-care (01) ==
LOC: UCEAST 11:46
DX: S09.21XA Traumatic rupture of right ear drum, initial encounter (principal); T70.0XXA Otitic barotrauma, initial encounter; I10 Essential (primary) hypertension; Z88.1 Allergy status to other antibiotic agents; Z88.8 Allergy status to other drugs, medicaments and biological substances; Z91.041 Radiographic dye allergy status; W22.8XXA Striking against or struck by other objects, initial encounter
CPT/HCPCS: 99212; G0463

== ENCOUNTER 2019-05-12 08:59 | Day surgery (SDC) | payer MEDICARE ==
[~2019-05-12 08:59] MED LIST changes: -Acetaminophen TAB* 325 MG PO PRN; -Buffered Lidocaine 0.9% SYRIN* 5 ML/SYR SYRINGE INTRADERM ONE; +Buffered Lidocaine 1% SYRIN* 1 ML/SYRINGE INTRADERM ONE; +Lactated Ringers 1000 ML Bag* 1,000 ML IV SCH
[2019-05-12] MEDS ORDERED: Midazolam* 1 MG/ML 5 ML VIAL (5 MG) ONE (11:29)
[2019-05-12] MEDS ORDERED: Ondansetron INJ* 2 MG/ML VIAL ONE (12:01)
[2019-05-12] MEDS ORDERED: Propofol* 10 MG/ML 20 ML BTL ONE (12:01)
[2019-05-12] MEDS ORDERED: Lidocaine 2% PF * 5 ML VIAL ONE (12:01)
[2019-05-12 14:06] VITALS: BP 139/66
--- NOTE | 2019-05-13 02:25 | PRO ---
CC: Anson Pack MD * COLONOSCOPY REPORT: DATE OF PROCEDURE: 05/12/19 - [facility] PRIMARY CARE PHYSICIAN: Anson Pack MD. INDICATION FOR PROCEDURE: Rectal bleeding, constipation. PROCEDURE PERFORMED: Complete colonoscopy to the cecum with biopsy polypectomy. MEDICATIONS GIVEN: Please see anesthesia record. DESCRIPTION OF PROCEDURE: After the colonoscopy procedure including the risks, benefits, and alternatives with the risks not limited to perforation, surgery, missed lesions, and/or were explained to the patient, written informed consent was obtained, IV medication was given, and a rectal exam was performed. The rectal exam revealed palpable internal hemorrhoids and some slight rectal prolapse. The adult Olympus gastroscope was then inserted into the patient's rectum and advanced very carefully through the entirety of the colon into the cecal base. Cecal base was carefully inspected and normal in appearance. The terminal ileal valve was identified and normal in appearance. A photograph was taken of the cecal cap. The preparation was good over the next 10 minutes. The scope was carefully withdrawn. In the sigmoid colon, a small polyp was removed with biopsy polypectomy in the entirety. On return to the rectum, direct views were normal. On retroflexion, grade 2 internal hemorrhoids were appreciated. The scope was then removed from the patient. She tolerated the procedure well. She returned to the recovery room in stable condition. IMPRESSION: 1. Complete colonoscopy to the cecum. 2. Good prep. 3. Biopsy polypectomy of sigmoid colon polyp. 4. Grade 2 internal hemorrhoids. 5. Slight rectal prolapse. RECOMMENDATIONS: Would continue to monitor CBC. The bleeding may be explained by the rectal prolapse and the internal hemorrhoids. If ongoing decrease, would consider upper endoscopy. Recommend different bowel regimen. I would likely try to get her approved for either Linzess or Amitiza for opiate-induced constipation. Would recommend a repeat colonoscopy in 5 years' time. [id number]/[facility] #: [id number] [facility]ITAL[facility]
== END 2019-05-12 14:40 | disposition home or self-care (01) ==
LOC: OR 08:59
PROVIDERS: ATTEND Internal Medicine Gastroenterology
DX: K62.5 Hemorrhage of anus and rectum (principal); K59.00 Constipation, unspecified; K63.5 Polyp of colon; K64.8 Other hemorrhoids; E11.9 Type 2 diabetes mellitus without complications; Z79.84 Long term (current) use of oral hypoglycemic drugs; I10 Essential (primary) hypertension; E78.00 Pure hypercholesterolemia, unspecified; R00.2 Palpitations
CPT/HCPCS: 88305; J2250; J2405; J2704

== ENCOUNTER 2019-10-29 12:55 | Emergency (ER) | payer MEDICARE ==
--- OUTSIDE RECORDS SUMMARY | 2019-10-29 14:18 | XMS REPORT | Continuity of Care Document ---
:1950 External Reference #:[id number] Author Name Susanne Davis MD Address [address] [place] [address] Care Team Providers Name Role Phone [facility] - Care Team Information Range Aid [phone] Gastroenterology Fercho Darden MD - Ophthalmology Care Team Information Range [facility] [phone] [facility] - Care Team Information Range Aid [phone] Vascular Surgery Gino Pizarro MD - Infectious Care Team Information [facility] Disease Problems Active Problems Provider Date Type 2 diabetes mellitus Anson Pack M.D. Onset: 08/05/2004 Hemangioma Anson Pack M.D. Onset: 08/05/2004 Dysthymia Anson Pack M.D. Onset: 08/05/2004 Pure hypercholesterolemia Anson Pack M.D. Onset: 02/10/2005 Gastroesophageal reflux disease Anson Pack M.D. Onset: 12/18/2009 Pure hyperglyceridemia Anson Pack M.D. Onset: 09/23/2010 Anemia Anson Pack M.D. Onset: 08/05/2011 Leukopenia Anson Pack M.D. Onset: 08/05/2011 Myalgia & Myositis Unspecified Anson Pack M.D. Onset: 08/05/2011 Paroxysmal supraventricular tachycardia Anson Pack M.D. Onset: 2011 Benign essential hypertension Anson Pack M.D. Onset: 05/17/2012 Dysthymic disorder Anson Pack M.D. Onset: 05/06/2015 Fibromyalgia Anson Pack M.D. Onset: 05/06/2015 Essential hypertension Anson Pack M.D. Onset: 08/05/2015 Chronic pain syndrome Anson Pack M.D. Onset: 08/25/2017 Chronic kidney disease stage 3 Anson Pack M.D. Onset: 08/25/2017 Social History Type Date Description Comments Sex Unknown Tobacco Use Reviewed: 03/20/19 Denies Cigarette Use Smoking Status Reviewed: 10/10/19 Denies Cigarette Use ETOH Use Denies alcohol use Recreational Drug Use Former Drug User does not use illegal drugs and has used illegal drugs in the past Tobacco Use Start: Unknown Patient has never smoked Sun Exposure minimum amount of sun exposure Sun Exposure Does not use sunscreen Seat Belt/Car Seat never uses seat belt Allergies, Adverse Reactions, Alerts Active Allergies Reaction Severity Comments Date Flagyl body, muscle aches 04/22/2017 Levaquin body, muscle aches 04/22/2017 Inactive Allergies NKDA 10/13/2003 Medications Active Medications SIG Qnty Indications Ordering Date Provider Methadone HCL take 2 tablets by 120tabs M79.7 Anson Pack, 10/04/2018 10mg mouth 2x/day; for M.D. Tablets chronic pain; may fill Rx 09/21/19 Pain Slayer 2-10 drops under Unknown 10/03/2018 the tongue every 6 hours Carisoprodol take 1 tablet by 90tabs M79.7 Anson Pack, 07/19/2018 350mg mouth three times M.D. Tablets daily as needed - maximum daily dose of 3 tablets per day Polyethylene Glycol 2 cap fulls in 1000gm K59.00 Anson Pack, 2017 3350 16oz of any fluid M.D. Powder every day; adjust dose as directed w/ goal of 1-2 soft bms/day Probiotic one po daily Unknown 04/19/2018 Metoprolol Succinate Take 1 Tablet By 90tabs I47.1 Anson Pack, 2016 ER Mouth Every Day M.D. 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 cholesterol E78.1 Verapamil HCL Take 1 Tablet By 180tabs I47.1 Francois Reece, 03/22/2012 120mg Tablets Mouth Two Times D.O. Daily For Heart Rhythym Ondansetron HCL 1 by mouth every 4 30tabs R11.2 Anson Pack, 2010 4mg Tablets hours as needed M.D. for nausea R11.0 Fluocinonide apply a thin layer 60gm L20.9 Anson Pack, 05/15/2009 0.05% Cream to affected areas M.D. twice a day until clear Multivitamins 1 PO qd 100tabs Unknown Tablets History Medications Ferrous Sulfate take 1 tablet (with 45tabs D50.9 Anson Pack, 2018 - oj or vit c) by M.DMann 07/05/2019 325(65Fe) mg mouth every 2nd day Tablets on empty stomach; for iron deficiency Medications Administered in Office Medication SIG Qnty Indications Ordering Provider Date SC/Im Injections Francois Reece DMannOMann 02/01/2017 Injection injection, davealog, 10 mg Anson Pack M.D. 07/28/2013 Injection injection, davealog, 10 mg Anson Pack M.D. 02/05/2012 Injection injection, kenalog, 10 mg Anson Pack M.D. 12/12/2011 Injection Immunizations CPT Code Status Date Vaccine Lot # [id number] Given 07/05/2019 Influenza Vaccine, Inactivated, Subunit, [id number] Adjuvanted, For Intrmusc 23700 Given 04/20/2018 Influenza Vaccine Split Virus Preservative Free [id number] Im Use (hi-dose) 39315 Given 01/12/2018 Shingrix Zoster (Shingles) Vaccine (HZV) Recomb,Subnit,Adjuvanted 69296 Given 01/12/2018 Pneumococcal Immunization [id number] 73342 Given 04/22/2017 Influenza Vaccine Split Virus Preservative Free [id number] Im Use (hi-dose) 09755 Given 09/11/2016 Prevnar 13 [id number] 58700 Given 05/12/2016 Influenza Virus Vaccine, Quadrivalent, Split, [id number] Preservative Free 19014 Given 08/05/2015 Influenza Virus Vaccine, Quadrivalent, Split, [id number] Preservative Free 34351 Given 04/20/2014 Influenza Virus Vaccine, Quadrivalent, Split, [id number] Preservative Free 85494 Given 09/22/2013 Adacel or Boostrix, TDaP [id number] 99145 Given 06/02/2013 Flu, Split Virus 3Yrs [id number] 47927 Given 05/17/2012 Flu, Split Virus 3Yrs 56697 Given 05/17/2012 Flu, Split Virus 3Yrs 57983 Given 05/17/2012 Flu, Split Virus 3Yrs [id number] 75755 Given 05/06/2011 Flu, Split Virus 3Yrs [id number] 42405 Given 05/06/2011 Hep A, Adult [id number] 62888 Given 12/18/2009 Pneumococcal Immunization [id number] 87785 Given 08/27/2003 Hep B Immunization, Adult 13444 Given 08/27/2003 Td Immunization 58712 Given 08/27/2003 Flu, Split Virus 3Yrs [id number] Refused 08/05/2011 Zostavax Vital Signs Date Vital Result Comment 10/09/2019 4:09pm Weight 139.75 lb 07/05/2019 2:51pm BP Systolic 126 mmHg BP Diastolic 66 mmHg Height 64 inches 5'4" Weight 136.00 lb BMI (Body Mass Index) 23.3 kg/m2 Results Test Acquired Date Facility Test Result H/L Range Note CBC Auto 07/05/2019 [facility] White Blood 5.8 10^3/uL Normal 3.5- 10.8 Diff [phone] Count Red Blood Count 4.65 10^6/uL Normal 3.70-4.87 Hemoglobin 12.3 g/dL Normal 12.0-16.0 Hematocrit 39 % Normal 35-47 Mean Corpuscular Volume 83 fL Normal 80-97 Mean Corpuscular Hemoglobin 27 pg Normal 27-31 Mean Corpuscular HGB Conc 32 g/dL Normal 31-36 Red Cell Distribution Width 18 % High 10-15 Platelet Count 228 10^3/uL Normal 150-450 Mean Platelet Volume 8.1 fL Normal 7.4-10.4 Abs Neutrophils 3.9 10^3/uL Normal 1.5-7.7 Abs Lymphocytes 1.5 10^3/uL Normal 1.0-4.8 Abs Monocytes 0.4 10^3/uL Normal 0-0.8 Abs Eosinophils 0.1 10^3/uL Normal 0-0.6 Abs Basophils 0.0 10^3/uL Normal 0-0.2 Abs Nucleated RBC 0.0 10^3/uL Granulocyte % 66.5 % Lymphocyte % 25.2 % Monocyte % 6.0 % Eosinophil % 1.6 % Basophil % 0.7 % Nucleated Red Blood Cells % 0.1 Laboratory test finding 07/05/2019 [facility] Ferritin 18.3 ng/mL Normal 11-307 [phone] Iron & Iron Binding 07/05/2019 [facility] Iron 55 g/dL Normal 50- 212 Capacity [phone] Unsaturated Iron Binding < 490 g/dL Total Iron Binding Capacity 505 g/dL High 250-450 Transferrin 361 mg/dL Normal 203-362 % Iron Saturation 11 % Low 15-55 Laboratory test 07/05/2019 In House Hemoglobin A1c 5.8 finding Laboratory test 05/12/2019 [facility] Point of Care 135 mg/dL High 70 -100 1 finding [phone] Glucose 1 Twist Tester: [id number] Procedures Date Code Description Status 07/05/2019 56334 Electrocardiogram Complete Completed 05/12/2019 [id number] Colonoscopy Completed 03/28/2019 [id number] Mammogram Completed 10/25/2018 864630138 Diabetic Retinal Eye Exam Completed 07/22/2018 [id number] Diabetic Foot Exam Completed 11/21/2012 [id number] Colonoscopy Completed Medical Devices Description No Information Available Encounters Type Date Location Provider Dx Diagnosis Office Visit 10/09/2019 Main Office Susanne Davis MD G89.4 Chronic pain 4:00p syndrome M79.7 Fibromyalgia Office Visit 07/05/2019 2:45p Main Office Anson Pack, Z68.23 Body mass index M.D. (BMI) 23.0-23.9, adult E11.22 Type 2 diabetes mellitus w diabetic chronic kidney disease I10 Essential (primary) hypertension M72.2 Plantar fascial fibromatosis G89.4 Chronic pain syndrome M79.7 Fibromyalgia F34.1 Dysthymic disorder D50.9 Iron deficiency anemia, unspecified K59.01 Slow transit constipation Z23 Encounter for immunization Assessments Date Code Description Provider 10/09/2019 G89.4 Chronic pain syndrome Susanne Davis MD 10/09/2019 M79.7 Fibromyalgia Susanne Davis MD 07/05/2019 Z68.23 Body mass index (BMI) 23.0-23.9, adult Anson Pack M.D. 07/05/2019 E11.22 Type 2 diabetes mellitus with diabetic Anson Pack M.D. chronic kidney disease 07/05/2019 I10 Essential (primary) hypertension Anson Pack M.D. 07/05/2019 M72.2 Plantar fascial fibromatosis Anson Pack M.D. 07/05/2019 G89.4 Chronic pain syndrome Anson Pack M.D. 07/05/2019 M79.7 Fibromyalgia Anson Pack M.D. 07/05/2019 F34.1 Dysthymic disorder Anson Pack M.D. 07/05/2019 D50.9 Iron deficiency anemia, unspecified Anson Pack M.D. 07/05/2019 K59.01 Slow transit constipation Anson Pack M.D. 07/05/2019 Z23 Encounter for immunization Anson Pack M.D. Plan of Treatment Future Appointment(s):10/16/2019 1:30 pm - Susanne Davis MD at [id number] 3:30 pm - Anson Pack M.D. at [facility]/13/2018 - Felipa Horn PAJ06.9 Acute upper respiratory infection, unspecifiedComments:Viral URI. Recommended OTC cold meds, rest, fluids, NSAIDs as needed. Recheck if sx not improving.J02.9 Acute pharyngitis, unspecifiedComments:Rapid strep negative , will culture. Recommended warm salt water gargles. Recheck if sx not improving. Functional Status Description No Information Available Mental Status Description No Information Available Referrals Description No Information Available
--- OUTSIDE RECORDS SUMMARY | 2019-10-29 14:18 | XMS REPORT | Continuity of Care Document ---
:1950 External Reference #:[id number] Author Name Felipa Horn PA (transmitted by agent of provider Maddy Gray) Address [address] [facility], [facility] [address] [place] [address] Care Team Providers Name Role Phone [facility] - Care Team Information Polisher Eyeglass Frames [phone] Gastroenterology Fercho Darden MD - Ophthalmology Care Team Information Polisher Eyeglass Frames [phone] [facility] - Care Team Information Polisher Eyeglass Frames [phone] Vascular Surgery Gino Pizarro MD - Infectious Care Team Information Polisher Eyeglass Frames Disease Problems Active Problems Provider Date Type [...] Medications Active Medications SIG Qnty Indications Ordering Provider Date Medrol use as directed 1units M54.12 Anson Pack, 10/19/2019 4mg TBPK on package M.D. Lyrica 1 capsule by 60caps M79.7 Francois Reece, 10/19/2019 75mg Capsules mouth twice daily D.O. for nerve pain/fibromyalgia G89.4 Methadone HCL take 2 tablets by 120tabs M79.7 Anson Pack, 10/04/2018 10mg mouth 2x/day; for M.D. Tablets chronic pain Pain Slayer 2-10 drops under the Unknown 10/03/2018 tongue every 6 hours Carisoprodol take 1 tablet by 90tabs M79.7 Anson Pack, 07/19/2018 350mg mouth three times M.D. Tablets daily as needed - maximum daily dose of 3 tablets per day Polyethylene Glycol 2 cap fulls in 16oz 1000gm K59.00 Anson Pack, 3350 of any fluid every M.D. Powder day; adjust dose as directed w/ goal of 1-2 soft bms/day Probiotic one po daily Unknown 04/19/2018 Metoprolol Succinate Take 1 Tablet By 90tabs I47.1 Anson Pack, 2016 ER Mouth Every Day For M.D. 50mg Tablets ER 24HR High Blood Pressure And Heart Rhythm/Rate Control Pantoprazole Sodium Take 1 Tablet By 90tabs [...] 2018 - oj or vit c) by Anastasiia 07/05/2019 325(65Fe) mg mouth every 2nd day Tablets on empty stomach; for iron deficiency Medications Administered in Office Medication SIG Qnty Indications Ordering Provider Date SC/Im Injections Francois Reece D.O. 02/01/2017 Injection injection, davealog, 10 mg Anson Pack M.D. 07/28/2013 Injection injection, kenalog, 10 mg Anson Pack M.D. 02/05/2012 Injection injection, davealog, 10 mg Anson Pack M.D. 12/12/2011 Injection Immunizations CPT Code Status Date Vaccine Lot # [id number] Given 07/05/2019 Influenza Vaccine, Inactivated, Subunit, [id number] Adjuvanted, For [place] 45218 Given 04/20/2018 Influenza Vaccine Split Virus Preservative Free [id number] Im Use (hi-dose) 65108 Given 01/12/2018 Shingrix Zoster (Shingles) Vaccine (HZV) Recomb,Subnit,Adjuvanted 87208 Given 01/12/2018 Pneumococcal Immunization [id number] 99152 Given 04/22/2017 Influenza Vaccine Split Virus Preservative Free [id number] Im Use (hi-dose) 19910 Given 09/11/2016 Prevnar 13 [id number] 02701 Given 05/12/2016 Influenza Virus Vaccine, Quadrivalent, Split, [id number] Preservative Free 43977 Given 08/05/2015 Influenza Virus Vaccine, Quadrivalent, Split, [id number] Preservative Free 24324 Given 04/20/2014 Influenza Virus Vaccine, Quadrivalent, Split, [id number] Preservative Free 98686 Given 09/22/2013 Adacel or Boostrix, TDaP [id number] 22963 Given 06/02/2013 Flu, Split Virus 3Yrs [id number] 67900 Given 05/17/2012 Flu, Split Virus 3Yrs 31834 Given 05/17/2012 Flu, Split Virus 3Yrs 84760 Given 05/17/2012 Flu, Split Virus 3Yrs [id number] 18864 Given 05/06/2011 Flu, Split Virus 3Yrs [id number] 35502 Given 05/06/2011 Hep A, Adult [id number] 14169 Given 12/18/2009 Pneumococcal Immunization [id number] 20954 Given 08/27/2003 Hep B Immunization, Adult 43376 Given 08/27/2003 Td Immunization 58209 Given 08/27/2003 Flu, Split Virus 3Yrs [id number] Refused 08/05/2011 Zostavax Vital Signs Date Vital Result Comment 10/19/2019 1:54pm Height 64 inches 5'4" 10/09/2019 4:09pm Weight 139.75 lb Results Test Acquired Date Facility Test Result H/L Range Note CBC Auto 07/05/2019 [facility] White Blood 5.8 10^3/uL Normal 3.5- 10.8 Diff [phone] Count Red Blood Count 4.65 10^6/uL Normal [...] Cells % 0.1 Laboratory test finding 07/05/2019 [facility] Ferritin 18.3 ng/mL Normal 11-307 [phone] Iron & Iron Binding 07/05/2019 [facility] Iron 55 g/dL Normal 50- 212 Capacity [phone] Unsaturated Iron Binding < 490 g/dL Total Iron Binding Capacity 505 g/dL High 250-450 Transferrin 361 mg/dL Normal 203-362 % Iron Saturation 11 % Low 15-55 Laboratory test 07/05/2019 In House Hemoglobin A1c 5.8 finding Laboratory test 05/12/2019 [facility] Point of Care 135 mg/dL High 70 -100 1 finding [phone] Glucose 1 Hearing Aid Assembly Supervisor: [id number] Procedures Date Code Description Status 10/19/2019 85892 Brief Emotional/Behav Assessment W/ Scoring Doc Per Completed Standard Inst 07/05/2019 58365 Electrocardiogram Complete Completed 05/12/2019 18622340 Colonoscopy Completed 03/28/2019 66776716 Mammogram Completed 10/25/2018 912557367 Diabetic Retinal Eye Exam Completed 07/22/2018 432102736 Diabetic Foot Exam Completed 11/21/2012 06882865 Colonoscopy Completed Medical Devices Description No Information Available Encounters Type Date Location Provider Dx Diagnosis Office Visit 10/19/2019 Main Office Felipa Horn PA M54.12 Radiculopathy , 1:35p cervical region M54.2 Cervicalgia M79.601 Pain in right arm G89.4 Chronic pain syndrome M79.7 Fibromyalgia Z13.31 Encounter for screening for depression Office Visit 10/09/2019 4:00p Main Office Susanne Davis G89.4 Chronic pain MD syndrome M79.7 Fibromyalgia Z79.899 Other fdc (current) drug therapy Office Visit 07/05/2019 2:45p Main Office Anson Pack, Z68.23 Body mass index M.D. (BMI) 23.0-23.9, adult E11.22 Type 2 diabetes mellitus w diabetic chronic kidney disease I10 Essential (primary) hypertension M72.2 Plantar fascial fibromatosis G89.4 Chronic pain syndrome M79.7 Fibromyalgia F34.1 Dysthymic disorder D50.9 Iron deficiency anemia, unspecified K59.01 Slow transit constipation Z23 Encounter for immunization Assessments Date Code Description Provider 10/19/2019 M54.12 Radiculopathy, cervical region Felipa Horn PA 10/19/2019 M54.2 Cervicalgia Felipa Horn PA 10/19/2019 M79.601 Pain in right arm Felipa Horn PA 10/19/2019 G89.4 Chronic pain syndrome Felipa Horn PA 10/19/2019 M79.7 Fibromyalgia Felipa Horn PA 10/19/2019 Z13.31 Encounter for screening for depression Felipa Horn PA 10/09/2019 G89.4 Chronic pain syndrome Susanne Davis MD 10/09/2019 M79.7 Fibromyalgia Susanne Davis MD 10/09/2019 Z79.899 Other fdc (current) drug therapy Susanne Davis MD 07/05/2019 Z68.23 Body mass [...] Anson Pack M.D. Plan of Treatment Future Appointment(s):11/24/2019 3:30 pm - Anson Pack M.D. at Main Qvxfwb2110/19/2019 - Felipa Horn, PAM54.12 Radiculopathy, cervical regionNew Medication:Medrol 4 mg - use as directed on eivvkybN72.2 UiziusmpdjlL93.601 Pain in right armG89.4 Chronic pain syndromeNew Medication:Lyrica 75 mg - 1 capsule by mouth twice daily for nerve pain/nuuechtdfzsnM17.7 FibromyalgiaNew Medication:Lyrica 75 mg - 1 capsule by mouth twice daily for nerve pain/ vsaksnalqhegY85.31 Encounter for screening for depression Functional Status Description No Information Available Mental Status Description No Information Available Referrals Description No Information Available
[2019-10-29 14:25] VITALS: BP 126/58
--- NOTE | 2019-10-29 15:07 | UC ---
Upper Extremity HPI - HPI Summary HPI Summary: 69 year old female with PMH + for fibromyalgia, on Soma and methadone, presents with pain to L thumb after fall last night. + swelling, + bruising. decreased ROM due to pain. No prior injuries. Also c/o right ankle swelling after fall. + ambulatory without difficulty. mild pain with certain movements. - History of Current Complaint Chief Complaint: UCUpperExtremity Stated Complaint: THUMB INJURY Time Seen by Provider: 10/29/19 14:20 Hx Obtained From: Patient ?: No Onset/Duration: Sudden Onset, Lasting Days - last night. Severity Initially: Moderate Severity Currently: Moderate Pain Intensity: 7 Pain Scale Used: 0-10 Numeric Location Of Pain: Is Discrete @ - right ankle, left thumb. Aggravating Factor(s): Movement Alleviating Factor(s): Nothing Associated Signs And Symptoms: Positive: Swelling, Redness - Allergies/Home Medications Allergies/Adverse Reactions: Allergies Allergy/AdvReac Type Severity Reaction Status Date / Time Iodinated Contrast Media Allergy See Comment Verified 10/29/19 14:25 [Iodinated Contrast- Oral and IV Dye] levofloxacin [From Levaquin] Allergy Muscle Ache Verified 10/29/19 14:25 metronidazole [From Flagyl] Allergy Muscle Ache Verified 10/29/19 14:25 NSAIDS (Non-Steroidal Allergy See Comment Verified 10/29/19 14:25 Anti-Inflamma vancomycin Allergy Muscle Ache Verified 10/29/19 14:25 Home Medications: Home Medications Carisoprodol TAB* [Soma TAB*] 350 mg PO BEDTIME PRN 07/26/13 [History Confirmed 10/29/19] Methadone TAB* [Dolophine TAB*] 20 mg PO BID 07/26/13 [History Confirmed ] Verapamil TAB* [Calan*] 120 mg PO BID 07/26/13 [History Confirmed 10/29/19] Rosuvastatin Calcium [Crestor] 0.5 tab PO QPM 06/29/15 [History Confirmed ] Esomeprazole Magnesium [Nexium] 40 mg PO QAM 12/16/15 [History Confirmed ] Metoprolol Succinate XL TAB* [Toprol XL TAB*] 50 mg PO QAM 08/03/17 [History Confirmed 10/29/19] Pregabalin 25 mg CAP (*) [Lyrica CAP(*)] 25 mg PO BID 08/03/17 [History Confirmed 10/29/19] PMH/Surg Hx/FS Hx/Imm Hx Previously Healthy: Yes - Surgical History Surgical History: Yes Surgery Procedure, Year, and Place: 1989 Liver surger r/t begnign tumors, thinks also had gallbladder removed at that time. hernandez. 2001 LUMP IN CHEST REMOVED [facility] - Family History Known Family History: Positive: Diabetes, Other - POS: MD, CVA - Social History Occupation: Disabled Alcohol Use: None Substance Use Type: Prescribed Substance Use Comment - Amount & Last Used: methadone 2X day Smoking Status (MU): Never Smoked Tobacco Have You Smoked in the Last Year: No - Immunization History Most Recent Influenza Vaccination: 2014 Review of Systems All Other Systems Reviewed And Are Negative: Yes Constitutional: Positive: Fever, Chills, Fatigue Skin: Positive: Negative Eyes: Positive: Negative Musculoskeletal: Positive: Arthralgia, Decreased ROM, Edema, Myalgia Psychological: Positive: Negative Is Patient Immunocompromised?: No Physical Exam Triage Information Reviewed: Yes Appearance: Well-Appearing, No Pain Distress, Well-Nourished Vital Signs: Initial Vital Signs Temp 97.3 F 10/29/19 14:22 Pulse 54 10/29/19 14:22 Resp 12 10/29/19 14:22 BP 126/58 10/29/19 14:22 Pulse Ox 98 10/29/19 14:22 Vital Signs Reviewed: Yes Eyes: Positive: Conjunctiva Clear ENT: Positive: Hearing grossly normal Musculoskeletal: Positive: Strength Intact - + ROM of DIP, MCP. decreased due to swelling/ pain., ROM Intact - left 2-5th fingers with full range of motion, non-tender. no edema, no bruising., Edema @ - left thumb, Other: - TTP over DIp , MCP 1st finger L Neurological Exam: Normal Neurological: Positive: Alert, Other: - SITLT distal to right ankle, throughout left hand Psychological Exam: Normal Psychological: Positive: Normal Response To Family Skin: Positive: Other - mild edema over Upper Extremity Course/Dx - Course Course Of Treatment: Fracture at the tip of finger - Splint on at all times. May remove for washing. - Follow up with orthopedics within 1 weeks for repeat evaluation - Motrin/ tylenol as needed for pain due to methadone use - Keep elevated, ice as needed, 20mins on, 20 mins off. mild sprain, right leg- gel splint, follow up with ortho if no improvement [employer] Products Processor: Herman Ac, ([id number]) Hand Assembler For Puller Over: DENIS (DENIS) Report Date: 10/29/2019 15:20:00 Report Status: Final Start of Report Content Patient Name: OLIMPIA JOHNSON Medical Record#: [id number] Ordering Physician: Nati OSPINA Acct.#: [id number] : Age: 69 Sex: F Location: [facility] Exam Date: 10/29/19 144 ADM Status: REG ER Order Information: THUMB LEFT Accession Number: [id number] CPT: 33203 Clinical history: Injury. COMPARISON: Same day left wrist radiograph. TECHNIQUE: 3 radiographic views of the left thumb were obtained. FINDINGS: There is mild soft tissue swelling. The bones are osteopenic. A nondisplaced fracture is annotated along the dorsal base of the distal phalanx. Anatomic alignment is maintained. There is mild osteoarthropathy of the first CMC. IMPRESSION: Nondisplaced fracture of the distal phalanx < Electronically signed by Herman Ac MD in OV> 10/29/191514 Dictated By: Herman Ac MD Dictated Date/Time: 10/29/191511 Transcribed Date/Time: 1511 Copy to: CC:Frantz Roberto MD; Anson Pack MD; Nati OSPINA Imaging - [facility] Imaging - [facility] [address] [address] ph [phone] ph [phone] ph [phone]) End of Report Content - Differential Dx/Diagnosis Provider Diagnosis: Right ankle sprain, Fracture of distal phalanx of left thumb Discharge ED - Sign-Out/Discharge Documenting (check all that apply): Patient Departure All imaging exams completed and their final reports reviewed: Yes - Discharge Plan Condition: Good Disposition: HOME Patient Education Materials: Finger Fracture (ED) Referrals: Anson Pack MD [Primary Care Provider] - Lucy Reyes MD [Medical Doctor] - Additional Instructions: Fracture at the tip of finger - Splint on at all times. May remove for washing. - Follow up with orthopedics within 1 weeks for repeat evaluation - Motrin/ tylenol as needed for pain due to methadone use - Keep elevated, ice as needed, 20mins on, 20 mins off. Ster[employer] Processor: Herman Ac, ([id number]) Hand Assembler For Puller Over: DENIS (DENIS) Report Date: 10/29/2019 15:20:00 Report Status: Final Start of Report Content Patient Name: OLIMPIA JOHNSON Medical Record#: [id number] Ordering Physician: Nati OSPINA Acct.#: [id number] : Age: 69 Sex: F Location: [facility] Exam Date: 10/29/19 1447 ADM Status: REG ER Order Information: THUMB LEFT Accession Number: [id number] CPT: 02661 Clinical history: Injury. COMPARISON: Same day left wrist radiograph. TECHNIQUE: 3 radiographic views of the left thumb were obtained. FINDINGS: There is mild soft tissue swelling. The bones are osteopenic. A nondisplaced fracture is annotated along the dorsal base of the distal phalanx. Anatomic alignment is maintained. There is mild osteoarthropathy of the first CMC. IMPRESSION: Nondisplaced fracture of the distal phalanx < Electronically signed by Herman Ac MD in OV> 10/29/19 1515 Dictated By: Herman Ac MD Dictated Date/Time: 10/29/19 151 Transcribed Date/Time: 1511 Copy to: CC:Frantz Roberto MD; Anson Pack MD; Nati OSPINA [facility] Imaging - [facility] [address] [place] [id number] [address] [address] ph [phone]) ph [phone] ph ) End of Report Content - Billing Disposition and Condition Condition: GOOD Disposition: Home
== END 2019-10-29 15:25 | disposition home or self-care (01) ==
LOC: UCEAST 12:55
DX: S62.522A Displaced fracture of distal phalanx of left thumb, initial encounter for closed fracture (principal); S93.401A Sprain of unspecified ligament of right ankle, initial encounter; W18.30XA Fall on same level, unspecified, initial encounter; M79.7 Fibromyalgia; Y92.9 Unspecified place or not applicable; Z91.041 Radiographic dye allergy status; Z88.1 Allergy status to other antibiotic agents; Z88.6 Allergy status to analgesic agent
CPT/HCPCS: 99212; G0463